=== PATIENT | female | born 2000 | race Caucasian/White ===

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

== ENCOUNTER → 2021-03-22 | Outpatient (CLI) | payer OTHER ==
[~2021-03-22] MED LIST changes: +DOCUSATE SODIU100 MG PO
== END ==
LOC: KOH-I 03-18 09:30
DX: R10.11 Right upper quadrant pain (principal); K82.8 Other specified diseases of gallbladder
CPT/HCPCS: 76700

== ENCOUNTER → 2021-04-09 | Outpatient (CLI) | payer OTHER | LOC: NM 04-07 09:00 | DX: K82.8 Other specified diseases of gallbladder (principal) | CPT/HCPCS: 78227; A9537; J2805 ==